=== PATIENT | female | born 1940 | race Caucasian/White ===

== ENCOUNTER → 2016-07-19 | Outpatient (CLI) | payer MEDICARE | LOC: US 10:27 | DX: M79.604 Pain in right leg (principal); R22.41 Localized swelling, mass and lump, right lower limb | CPT/HCPCS: 93971 ==

== ENCOUNTER 2021-01-26 09:15 | Emergency (ER) | payer MEDICARE ==
[~2021-01-26 09:15] MED LIST: ASPIR 8181 MG PO; CELEBREX 200MG200 MG PO; CLARITIN10 MG PO; DOXYCYCLINE HY100 M2 PO; EPIDIOLEX100 MG/1 M SL; LEXAPRO TAB 1010 MG PO; NASAL SPRAY SIN30 ML; NORVASC 5 MG TAB5 MG PO; WELLBUTRIN XL150 MG PO
[2021-01-26 11:14] LABS: HEMOGLOBIN 14.4 gm/dl (12.3-15.3); RED BLOOD COUNT 4.61 M/UL (4.00-5.10); WHITE BLOOD COUNT 7.7 K/UL (4.5-11.0)
[2021-01-26 11:42] LABS: BUN/CREATININE RATIO 18 (0-10)
[2021-01-26] MEDS ORDERED: Voltaren Gel 1 % TOP (13:26)
== END 2021-01-26 13:40 | disposition home or self-care (01) ==
LOC: ER1 09:15
PROVIDERS: Physician Assistant Medical
DX: M17.11 Unilateral primary osteoarthritis, right knee (principal); I10 Essential (primary) hypertension
CPT/HCPCS: 73564; 80053; 85025; 85652; 86140; 93971; 99284